=== PATIENT | male | born 1940 | race Caucasian/White ===

== ENCOUNTER → 2017-11-04 | Outpatient (CLI) | payer MEDICARE, BC ==
[~2017-11-04] MED LIST: REGADENOSON 0.4 MG/5 ML SYRINGE ONE
== END | disposition home or self-care (01) ==
LOC: CFH 11:07
PROVIDERS: ATTEND Internal Medicine Cardiovascular Disease
DX: I08.3 Combined rheumatic disorders of mitral, aortic and tricuspid valves (principal); I10 Essential (primary) hypertension; I48.1 Persistent atrial fibrillation; R06.02 Shortness of breath; C61 Malignant neoplasm of prostate
CPT/HCPCS: 78452; 93017; 93306; A9502; J2785

== ENCOUNTER 2017-11-21 17:17 | Inpatient (IN) | payer MEDICARE, BC ==
[~2017-11-21] VITALS: Ht 177.8 cm; Wt 81.2 kg
[2017-11-21 17:48] LABS: MEAN CORPUSCULAR HEMOGLOBIN 32.9 pg (27.5-34.5); MEAN CORPUSCULAR HGB CONC 34.7 g/dL (33.2-36.2); MEAN CORPUSCULAR VOLUME 94.9 fL (81-97); MEAN PLATELET VOLUME 6.9 fL (7.4-10.4); PLATELET COUNT 182 x10^3/uL (130-400); RED BLOOD COUNT 4.09 x10^6/uL (4.38-5.82); RED CELL DISTRIBUTION WIDTH 15.4 % (9.4-14.8)
[2017-11-21 17:57] LABS: ALBUMIN 3.7 g/dL (3.4-5.0); ANION GAP 7 mmol/L (5-15); CALCIUM 9.1 mg/dL (8.5-10.1); CHLORIDE 105 mmol/L (98-107); CREATININE 0.81 mg/dL (0.7-1.3)
[2017-11-21 18:01] LABS: INTERNATIONAL NORMALIZED RATIO 1.06 (0.93-1.1); TROPONIN I < 0.015 ng/mL (0.000-0.045)
[2017-11-21 18:09] LABS: MD YES
[2017-11-21 18:12] LABS: BASOS#(MANUAL) 0.07 x10^3/uL (0-0.1); BASOS% (MANUAL) 1 % (0-1); EOS#(MANUAL) 1.82 x10^3/uL (0.0-0.4); EOS% (MANUAL) 28 % (1-7); LYMPH#(MANUAL) 0.65 x10^3/uL (1-3.4); LYMPHS% (MANUAL) 10 % (22-44); MONOS#(MANUAL) 0.33 x10^3/uL (0.3-2.7); MONOS% (MANUAL) 5 % (2-9); SEG#(MANUAL) 3.64 x10^3/uL (1.8-6.8); SEGS% (MANUAL) 56 % (42-75)
[2017-11-21 18:18] LABS: OVALOCYTES 1+
[2017-11-21 18:19] LABS: <PLATELET ESTIMATE> ADEQUATE; <PLT MORPHOLOGY> NORMAL PLT MORPH
[2017-11-21] MEDS: PLEASE ENTER ALLERGIES MC SCH ×2 (19:30→20:08)
[2017-11-21] MEDS ORDERED: ONDANSETRON 2MG/ML, 2ML IVPush PRN (19:30)
[2017-11-21] MEDS ORDERED: BISACODYL 10 MG SUPP PR PRN (19:30)
[2017-11-21] MEDS ORDERED: POLYETHYLENE GLYCOL 17 GM PACKET PO PRN (19:30)
[2017-11-21 20:20] VITALS: BP 153/93
[2017-11-21] MEDS ORDERED: HEPARIN 5,000 UNITS/ML, 1ML IV ONE (20:30)
[2017-11-21] MEDS: SODIUM CHLORIDE FLUSH 10ML SYR IVF SCH (20:57)
[2017-11-21] MEDS: HEPARIN 25,000 UNITS/500ML PMX 500 ML IV PRN (20:58)
[2017-11-22 02:53] VITALS: BP 117/75
[2017-11-22 03:17] LABS: MEAN CORPUSCULAR HEMOGLOBIN 32.8 pg (27.5-34.5); MEAN CORPUSCULAR HGB CONC 34.1 g/dL (33.2-36.2); MEAN PLATELET VOLUME 7.2 fL (7.4-10.4); PLATELET COUNT 172 x10^3/uL (130-400); RED BLOOD COUNT 3.95 x10^6/uL (4.38-5.82); RED CELL DISTRIBUTION WIDTH 15.5 % (9.4-14.8)
[2017-11-22 03:28] LABS: ALANINE AMINOTRANSFERASE 27 U/L (12-78); ALBUMIN 3.3 g/dL (3.4-5.0); ANION GAP 7 mmol/L (5-15); CALCIUM 8.7 mg/dL (8.5-10.1); CHLORIDE 107 mmol/L (98-107); CREATININE 0.83 mg/dL (0.7-1.3)
[2017-11-22 03:33] LABS: ALKALINE PHOSPHATASE 53 U/L (45-117); BILIRUBIN,TOTAL 0.5 mg/dL (0.2-1.0); TROPONIN I < 0.015 ng/mL (0.000-0.045)
[2017-11-22 03:47] LABS: BASOPHILS # (AUTO) 0.01 x10^3/uL (0-0.1); BASOPHILS % (AUTO) 0 % (0-1); EOSINOPHILS # (AUTO) 2.04 x10^3/uL (0-0.4); EOSINOPHILS % (AUTO) 35 % (1-7); LYMPHOCYTES # (AUTO) 0.61 x10^3/uL (1-3.4); LYMPHOCYTES % (AUTO) 10 % (22-44); MD SCAN; MONOCYTES # (AUTO) 0.54 x10^3/uL (0.2-0.8); MONOCYTES % (AUTO) 9 % (2-9); NEUTROPHILS # (AUTO) 2.66 x10^3/uL (1.8-6.8); NEUTROPHILS % (AUTO) 45 % (42-75)
[2017-11-22] MEDS: HEPARIN 5,000 UNITS/ML, 1ML IV PRN ×2 (04:07→18:22)
[2017-11-22 06:36] VITALS: BP 131/83
[2017-11-22] MEDS: SENNA/DOCUSATE TABLET PO SCH (09:00)
[2017-11-22] MEDS: SODIUM CHLORIDE FLUSH 10ML SYR IVF SCH ×2 (09:00→21:00)
[2017-11-22 12:27] VITALS: BP 116/70
[2017-11-22] MEDS ORDERED: WARFARIN 5 MG TABLET PO-COUM ONE (18:00)
[2017-11-22 19:11] VITALS: BP 136/79
[2017-11-22] MEDS: HEPARIN 25,000 UNITS/500ML PMX 500 ML IV PRN (21:40)
[2017-11-23 04:28] VITALS: BP 131/83
[2017-11-23 06:42] LABS: INTERNATIONAL NORMALIZED RATIO 1.03 (0.93-1.1); PROTHROMBIN TIME 10.7 Seconds (9.6-11.5)
[2017-11-23 06:46] VITALS: BP 125/85
[2017-11-23] MEDS: SENNA/DOCUSATE TABLET PO SCH (09:00)
[2017-11-23] MEDS: SODIUM CHLORIDE FLUSH 10ML SYR IVF SCH ×2 (09:31→21:00)
[2017-11-23] MEDS ORDERED: CEFAZOLIN PMX 1GM/50ML 50 ML IVPB ONE (11:30)
[2017-11-23 12:57] VITALS: BP 129/78
[2017-11-23] MEDS: SODIUM CHLORIDE 0.9% 1,000 ML IV SCH ×2 (13:28→20:58)
[2017-11-23] MEDS: HEPARIN 25,000 UNITS/500ML PMX 500 ML IV PRN (16:45)
[2017-11-23] MEDS ORDERED: WARFARIN 5 MG TABLET PO-COUM ONE (18:00)
[2017-11-23 20:00] VITALS: BP 120/77
[2017-11-24 02:00] VITALS: BP 121/78
[2017-11-24] MEDS: SODIUM CHLORIDE 0.9% 1,000 ML IV SCH ×3 (05:16→21:30)
[2017-11-24 05:24] LABS: INTERNATIONAL NORMALIZED RATIO 1.06 (0.93-1.1)
[2017-11-24 08:12] VITALS: BP 124/86
[2017-11-24] MEDS: SODIUM CHLORIDE FLUSH 10ML SYR IVF SCH ×3 (08:59→21:36)
[2017-11-24] MEDS: SENNA/DOCUSATE TABLET PO SCH (08:59)
[2017-11-24 11:23] VITALS: BP 133/82
[2017-11-24] MEDS ORDERED: CEFAZOLIN 1,000 MG ONE (13:20)
[2017-11-24] MEDS ORDERED: CEFAZOLIN PMX 1GM/50ML 50 ML ONE (13:20)
[2017-11-24] MEDS ORDERED: LIDOCAINE/PF 1%, 30ML ONE (13:20)
[2017-11-24] MEDS ORDERED: MIDAZOLAM 1 MG/ML, 5ML ONE (13:20)
[2017-11-24] MEDS ORDERED: FENTANYL PF 100 MCG/2ML ONE (13:20)
[2017-11-24] MEDS ORDERED: HOLD MEDICATION MC PRN (15:00)
[2017-11-24 15:05] VITALS: BP 145/89
[2017-11-24] MEDS ORDERED: WARFARIN 7.5 MG TABLET PO-COUM ONE (18:00)
[2017-11-24] MEDS ORDERED: DIGO125T PO (18:09)
[2017-11-24] MEDS ORDERED: [UNRECOGNIZED DRUG - REMARK] PO (18:09)
[2017-11-24 20:00] VITALS: BP 132/74
[2017-11-24] MEDS: HYDROcodone/APAP 5/325 TABLET PO PRN (21:22)
[2017-11-24] MEDS: CEFAZOLIN PMX 1GM/50ML 50 ML IVPB SCH (23:37)
[2017-11-25 01:01] VITALS: BP 144/88
[2017-11-25 06:29] LABS: INTERNATIONAL NORMALIZED RATIO 1.05 (0.93-1.1); PROTHROMBIN TIME 10.9 Seconds (9.6-11.5)
[2017-11-25] MEDS: CEFAZOLIN PMX 1GM/50ML 50 ML IVPB SCH (06:33)
[2017-11-25 08:18] VITALS: BP 134/80
[2017-11-25] MEDS: SENNA/DOCUSATE TABLET PO SCH (09:00)
[2017-11-25] MEDS: SODIUM CHLORIDE FLUSH 10ML SYR IVF SCH ×4 (09:20→20:18)
[2017-11-25 13:14] VITALS: BP 126/76
[2017-11-25] MEDS ORDERED: HEPARIN 5,000 UNITS/ML, 1ML IV PRN (15:00)
[2017-11-25] MEDS ORDERED: HEPARIN 5,000 UNITS/ML, 1ML IV ONE (15:00)
[2017-11-25] MEDS ORDERED: HEPARIN 25,000 UNITS/500ML PMX 500 ML IV PRN (15:00)
[2017-11-25] MEDS ORDERED: WARFARIN 10 MG TABLET PO-COUM ONE (18:00)
[2017-11-25 19:26] VITALS: BP 126/74
[2017-11-25] MEDS: HYDROcodone/APAP 5/325 TABLET PO PRN (21:10)
[2017-11-26] MEDS: HYDROcodone/APAP 5/325 TABLET PO PRN (01:16)
[2017-11-26 01:58] VITALS: BP 121/84
[2017-11-26 03:43] LABS: INTERNATIONAL NORMALIZED RATIO 1.27 (0.93-1.1); PROTHROMBIN TIME 13.1 Seconds (9.6-11.5)
[2017-11-26 07:57] VITALS: BP 142/93
[2017-11-26] MEDS: SODIUM CHLORIDE FLUSH 10ML SYR IVF SCH ×4 (09:35→19:59)
[2017-11-26] MEDS: SENNA/DOCUSATE TABLET PO SCH (09:36)
[2017-11-26] MEDS ORDERED: morphine SULFATE 10 MG/ML, 1ML IVPush ONE ×2 (10:30→12:00)
[2017-11-26 13:08] LABS: BASOPHILS % (AUTO) 0 % (0-1); EOSINOPHILS # (AUTO) 0.86 x10^3/uL (0-0.4); EOSINOPHILS % (AUTO) 16 % (1-7); LYMPHOCYTES # (AUTO) 0.49 x10^3/uL (1-3.4); LYMPHOCYTES % (AUTO) 9 % (22-44); MD NO; MEAN CORPUSCULAR HEMOGLOBIN 31.8 pg (27.5-34.5); MEAN CORPUSCULAR HGB CONC 33.4 g/dL (33.2-36.2); MEAN CORPUSCULAR VOLUME 95.2 fL (81-97); MEAN PLATELET VOLUME 7.1 fL (7.4-10.4); MONOCYTES # (AUTO) 0.61 x10^3/uL (0.2-0.8); MONOCYTES % (AUTO) 11 % (2-9); NEUTROPHILS # (AUTO) 3.36 x10^3/uL (1.8-6.8); NEUTROPHILS % (AUTO) 63 % (42-75); PLATELET COUNT 166 x10^3/uL (130-400); RED BLOOD COUNT 4.05 x10^6/uL (4.38-5.82)
[2017-11-26 14:46] VITALS: BP 123/85
[2017-11-26] MEDS ORDERED: WARFARIN 7.5 MG TABLET PO-COUM ONE (18:00)
[2017-11-26 19:57] VITALS: BP 128/82
[2017-11-26] MEDS: ACETAMINOPHEN 325 MG TABLET PO PRN (22:44)
[2017-11-27 02:55] VITALS: BP 122/76
[2017-11-27 06:00] LABS: INTERNATIONAL NORMALIZED RATIO 1.82 (0.93-1.1); PROTHROMBIN TIME 18.7 Seconds (9.6-11.5)
[2017-11-27 06:07] LABS: BASOPHILS # (AUTO) 0.01 x10^3/uL (0-0.1); BASOPHILS % (AUTO) 0 % (0-1); EOSINOPHILS # (AUTO) 1.24 x10^3/uL (0-0.4); EOSINOPHILS % (AUTO) 22 % (1-7); LYMPHOCYTES # (AUTO) 0.52 x10^3/uL (1-3.4); LYMPHOCYTES % (AUTO) 9 % (22-44); MD SCAN; MEAN CORPUSCULAR HEMOGLOBIN 32.8 pg (27.5-34.5); MEAN CORPUSCULAR HGB CONC 34.3 g/dL (33.2-36.2); MEAN CORPUSCULAR VOLUME 95.6 fL (81-97); MEAN PLATELET VOLUME 7.2 fL (7.4-10.4); MONOCYTES # (AUTO) 0.64 x10^3/uL (0.2-0.8); MONOCYTES % (AUTO) 12 % (2-9); NEUTROPHILS # (AUTO) 3.15 x10^3/uL (1.8-6.8); NEUTROPHILS % (AUTO) 57 % (42-75); PLATELET COUNT 150 x10^3/uL (130-400); RED CELL DISTRIBUTION WIDTH 16.5 % (9.4-14.8)
[2017-11-27 06:50] VITALS: BP 121/80
[2017-11-27] MEDS: ENOXAPARIN 80 MG/0.8 ML SQ SCH ×2 (07:19→18:17)
[2017-11-27] MEDS: SODIUM CHLORIDE FLUSH 10ML SYR IVF SCH ×4 (09:00→20:38)
[2017-11-27] MEDS: SENNA/DOCUSATE TABLET PO SCH (09:28)
[2017-11-27 14:00] VITALS: BP 107/68
[2017-11-27] MEDS ORDERED: WARFARIN 7.5 MG TABLET PO-COUM ONE (18:00)
[2017-11-27 20:03] VITALS: BP 106/66
[2017-11-27] MEDS: ACETAMINOPHEN 325 MG TABLET PO PRN (20:35)
[2017-11-28 01:44] VITALS: BP 114/77
[2017-11-28 05:14] LABS: INTERNATIONAL NORMALIZED RATIO 1.85 (0.93-1.1)
[2017-11-28] MEDS: ENOXAPARIN 80 MG/0.8 ML SQ SCH (06:35)
[2017-11-28 06:57] VITALS: BP 114/75
[2017-11-28] MEDS: SODIUM CHLORIDE FLUSH 10ML SYR IVF SCH ×2 (09:00)
[2017-11-28] MEDS: SENNA/DOCUSATE TABLET PO SCH (09:00)
[2017-11-28 12:11] VITALS: BP 112/72
[2017-11-28 12:25] VITALS: BP 137/93
[2017-11-28] MEDS ORDERED: WARF5TAB PO-COUM (12:51)
[2017-11-28] MEDS ORDERED: ENOX80SY4 SQ (12:51)
[2017-11-28] MEDS ORDERED: WARFARIN 7.5 MG TABLET PO-COUM ONE (18:00)
[2017-11-28] MEDS ORDERED: WARFARIN 5 MG TABLET PO-COUM SCH (18:00)
== END 2017-11-28 15:34 | disposition home or self-care (01) | DRG 242 ==
LOC: ED 18:51 → 4WST 19:48 → 5SO 11-24 14:06
PROVIDERS: ADMIT Hospitalist; ATTEND Internal Medicine
PROC: 0JH604Z Insertion of Pacemaker, Single Chamber into Chest Subcutaneous Tissue and Fascia, Open Approach (ICD-10-PCS; principal; 2017-11-21)
PROC: 02HK3JZ Insertion of Pacemaker Lead into Right Ventricle, Percutaneous Approach (ICD-10-PCS; 2017-11-21)
DX: I49.5 Sick sinus syndrome (principal); I26.99 Other pulmonary embolism without acute cor pulmonale; D68.69 Other thrombophilia; C85.90 Non-Hodgkin lymphoma, unspecified, unspecified site; I50.22 Chronic systolic (congestive) heart failure; D64.9 Anemia, unspecified; C61 Malignant neoplasm of prostate; F10.10 Alcohol abuse, uncomplicated; I11.0 Hypertensive heart disease with heart failure; I48.2 Chronic atrial fibrillation; Y92.89 Other specified places as the place of occurrence of the external cause; Z66 Do not resuscitate; Z79.01 Long term (current) use of anticoagulants; Z79.899 Other long term (current) drug therapy; Z80.1 Family history of malignant neoplasm of trachea, bronchus and lung; Z82.49 Family history of ischemic heart disease and other diseases of the circulatory system
CPT/HCPCS: 33207; 36415; 70450; 71045; 80048; 80053; 82040; 82565; 83880; 84484; 85025; 85520; 85610; 85730; 93005; 93306; 93970; 99156; 99157; 99285; C1779; C1786; C1892; J0690; J1644; J1650; J2250; J3010; J3490; J2270; J7030

== ENCOUNTER → 2017-11-21 | Outpatient (CLI) | payer MEDICARE, BC ==
[2017-11-21 16:18] LABS: CREATININE 0.91 mg/dL (0.7-1.3)
== END | disposition home or self-care (01) ==
LOC: RAD 15:14
PROVIDERS: ATTEND Internal Medicine Cardiovascular Disease
DX: I26.99 Other pulmonary embolism without acute cor pulmonale (principal); I48.91 Unspecified atrial fibrillation
CPT/HCPCS: 36415; 71275; 82565

== ENCOUNTER 2018-05-26 13:33 | Outpatient (CLI) | payer MEDICARE, BC ==
[~2018-05-26 13:33] MED LIST changes: +DIGO125T PO; +ENOX80SY4 SQ; -REGADENOSON 0.4 MG/5 ML SYRINGE ONE; +WARF5TAB PO-COUM; +[UNRECOGNIZED DRUG - REMARK] PO
== END 2018-05-26 23:59 | disposition home or self-care (01) ==
LOC: CFH 13:33
PROVIDERS: ATTEND Nurse Practitioner Primary Care
DX: Z02.9 Encounter for administrative examinations, unspecified (principal)

== ENCOUNTER → 2018-06-14 | Outpatient (CLI) | payer MEDICARE, BC | END | disposition home or self-care (01) | LOC: RAD 11:22 | PROVIDERS: ATTEND Nurse Practitioner Primary Care | DX: S83.282A Other tear of lateral meniscus, current injury, left knee, initial encounter (principal); S83.232A Complex tear of medial meniscus, current injury, left knee, initial encounter; S83.512A Sprain of anterior cruciate ligament of left knee, initial encounter; M25.462 Effusion, left knee; M17.12 Unilateral primary osteoarthritis, left knee; X58.XXXA Exposure to other specified factors, initial encounter; Y93.89 Activity, other specified; Y92.89 Other specified places as the place of occurrence of the external cause; Y99.8 Other external cause status; M67.462 Ganglion, left knee ==

== ENCOUNTER → 2018-09-08 | Outpatient (CLI) | payer MEDICARE, BC ==
[~2018-09-08] MED LIST changes: +OMNIPAQUE 350 MG/ML, 100ML BOTTLE ONE
== END | disposition home or self-care (01) ==
LOC: CFH 09:52
PROVIDERS: ATTEND Nurse Practitioner Primary Care
DX: I26.99 Other pulmonary embolism without acute cor pulmonale (principal); I70.0 Atherosclerosis of aorta; R91.1 Solitary pulmonary nodule
CPT/HCPCS: 71275; 82565; Q9967

== ENCOUNTER 2018-09-17 10:41 | Emergency (ER) | payer MEDICARE, BC ==
[~2018-09-17] VITALS: Ht 177.8 cm; Wt 86.4 kg
[~2018-09-17 10:41] MED LIST changes: -OMNIPAQUE 350 MG/ML, 100ML BOTTLE ONE
[2018-09-17 10:48] VITALS: BP 133/78
--- NOTE | 2018-09-17 11:21 | NUR ---
Patient requesting that his [place] 5/325mg pills from home be disposed of properly. At the recommendation of pharmacy, primary RN disposed of twelve Norcos in white bottel in med room. Meds verified by Yaron Melton RN.
--- NOTE | 2018-09-17 12:43 | NUR ---
Patient/Caregiver given discharge instructions and they have confirmed that they understand the instructions. Patient ambulatory with steady gait.
== END 2018-09-17 12:44 | disposition home or self-care (01) ==
LOC: ED 12:14
DX: S22.42XA Multiple fractures of ribs, left side, initial encounter for closed fracture (principal); J90 Pleural effusion, not elsewhere classified; I48.91 Unspecified atrial fibrillation; Z85.46 Personal history of malignant neoplasm of prostate; W01.0XXA Fall on same level from slipping, tripping and stumbling without subsequent striking against object, initial encounter; Y93.89 Activity, other specified; Y92.009 Unspecified place in unspecified non-institutional (private) residence as the place of occurrence of the external cause; Y99.8 Other external cause status
CPT/HCPCS: 71046; 99283

== ENCOUNTER 2019-07-08 11:45 | Emergency (ER) | payer MEDICARE, BC ==
[~2019-07-08] VITALS: Ht 177.8 cm; Wt 86.1 kg
[~2019-07-08 11:45] MED LIST changes: -DIGO125T PO; +DIGO125T85 PO
--- NOTE | 2019-07-08 12:13 | NUR ---
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
--- NOTE | 2019-07-08 12:55 | NUR ---
pt to imaging now.
[2019-07-08 13:13] LABS: INTERNATIONAL NORMALIZED RATIO 2.27 (0.93-1.1); PROTHROMBIN TIME 24.3 Seconds (9.6-11.5)
[2019-07-08 13:50] VITALS: BP 134/83
== END 2019-07-08 14:12 | disposition home or self-care (01) ==
LOC: ED 14:11
DX: G89.11 Acute pain due to trauma (principal); M25.551 Pain in right hip; M54.5 Low back pain; R79.1 Abnormal coagulation profile; I48.92 Unspecified atrial flutter; I48.91 Unspecified atrial fibrillation; Z85.46 Personal history of malignant neoplasm of prostate; W18.30XA Fall on same level, unspecified, initial encounter; Y93.89 Activity, other specified; Y92.89 Other specified places as the place of occurrence of the external cause; Y99.8 Other external cause status
CPT/HCPCS: 36415; 72110; 85610; 99284

== ENCOUNTER 2020-12-25 10:50 | Outpatient (CLI) | payer MEDICARE, BC ==
[~2020-12-25 10:50] MED LIST changes: -WARF5TAB PO-COUM; +WARF5TAB2 PO-COUM
[2020-12-25 11:30] LABS: INTERNATIONAL NORMALIZED RATIO 3.2 (0.93-1.1); PROTHROMBIN TIME 32.4 Seconds (9.6-11.5)
== END 2020-12-25 23:59 | disposition home or self-care (01) ==
LOC: LAB 10:50
PROVIDERS: ATTEND Internal Medicine Cardiovascular Disease
DX: I26.99 Other pulmonary embolism without acute cor pulmonale (principal); I48.11 Longstanding persistent atrial fibrillation; D68.69 Other thrombophilia; Z79.01 Long term (current) use of anticoagulants
CPT/HCPCS: 36415; 85610

== ENCOUNTER → 2021-01-28 | Outpatient (CLI) | payer MEDICARE, BC | END | disposition home or self-care (01) | LOC: LAB 12:16 | PROVIDERS: ATTEND Internal Medicine Cardiovascular Disease | DX: I26.99 Other pulmonary embolism without acute cor pulmonale (principal); D68.69 Other thrombophilia; I48.11 Longstanding persistent atrial fibrillation; Z79.01 Long term (current) use of anticoagulants ==